=== PATIENT | male | born 1985 | race African-American/Black ===

== ENCOUNTER 2019-06-07 02:39 | Emergency (ER) | payer SELFPAY ==
[~2019-06-07] VITALS: Ht 170.2 cm; Wt 68.0 kg
[2019-06-07] MEDS ORDERED: NKM (02:43)
[2019-06-07 02:45] VITALS: BP 127/76
--- NOTE | 2019-06-07 02:45 | NUR ---
ER Nurse Note: Pt brought in by [facility] for medical clearance. Per [facility], pt got tazed and had the tazer karen stuck on the RT flank and RT thigh. Pt ambulatory, with [facility] at pt side. [facility] documented on all forms. Will continue to monitor.
--- NOTE | 2019-06-07 03:06 | Emergency Room Report ---
History of Present Illness General Chief Complaint: Medical Clearance Source: Patient Present Illness HPI This is a 34-year-old transgender female who presents with chief complaint of foreign body to her flank. She was brought in for medical clearance by police. She was tased. There is a taser tip in the right flank back area. Minimal pain. No nausea no vomiting. No fever chills. Allergies: Coded Allergies: No Known Allergies (Unverified , 06/07/19) Patient History Past Medical History: see triage record, old chart reviewed Past Surgical History: other Pertinent Family History: none Social History: Reports: smoking Immunizations: other Reviewed Nursing Documentation: PMH: Agreed; PSxH: Agreed Nursing Documentation-PMH Past Medical History: No Stated History Review of Systems Eye: Denies: eye pain, blurred vision ENT: Denies: ear pain, nose congestion, throat swelling Respiratory: Denies: cough, shortness of breath Cardiovascular: Denies: chest pain, palpitations Gastrointestinal: Denies: abdominal pain, diarrhea, nausea, vomiting Musculoskeletal: Denies: back pain, joint pain Skin: Denies: rash Neurological: Denies: headache, numbness Endocrine: Denies: increased thirst, increased urine Hematologic/Lymphatic: Denies: easy bruising All Other Systems: negative except mentioned in HPI Physical Exam Vital Signs Date Time Temp Pulse Resp B/P (MAP) Pulse Ox O2 Delivery O2 Flow Rate FiO2 06/07/19 02:40 98.1 112 18 127/76 (93) 98 Room Air Vitals with tachycardia Sp02 EP Interpretation: reviewed, normal General Appearance: well appearing, no apparent distress, alert Head: normocephalic, atraumatic Eyes: bilateral eye PERRL, bilateral eye EOMI ENT: hearing grossly normal, normal pharynx Neck: full range of motion, supple, no meningismus Respiratory: chest non-tender, lungs clear, normal breath sounds Cardiovascular #1: regular rate, rhythm, no murmur Gastrointestinal: normal bowel sounds, non tender, no mass, no organomegaly, no bruit, non-distended Musculoskeletal: back normal, gait/station normal, normal range of motion, other - Taser tip in right flank Psychiatric: mood/affect normal Medical Decision Making Diagnostic Impression: Primary Impression: Foreign body (FB) in soft tissue ER Course Patient with a taser wire in his right flank soft tissue area. I removed it without any difficulty. Will discharge to police. Last Vital Signs Date Time Temp Pulse Resp B/P (MAP) Pulse Ox O2 Delivery O2 Flow Rate FiO2 06/07/19 02:45 112 18 Room Air 06/07/19 02:45 98.1 127/76 98 Status: improved Disposition: D/C TO LAW ENFORCEMENT IN [facility] Condition: Stable Additional Instructions: Follow-up with your doctor in 7 days. Keep wound clean. Return if worse. Sekou Pruitt MD Jun 07, 2019 03:06
--- NOTE | 2019-06-07 03:07 | NUR ---
ER Nurse Note: Ludiner wire extracted, provided specimen cup to ALIYA for the wire. Pt cooperating. Will continue to monitor. Pt seen, treated, medically cleared for booking by [facility]. Discharge instuctions given with repeat verbalization by ALIYA. Emphasized to follow up with primary care provider. All orders completed per ERMD orders. Pt a&ox4, VSS, no signs of distress. ID band removed. Pt left with all belongings, left with [facility].
[2019-06-07 03:11] VITALS: BP 127/76
== END 2019-06-07 03:11 ==
LOC: EMR 02:57
DX: M79.5 Residual foreign body in soft tissue (principal); F17.200 Nicotine dependence, unspecified, uncomplicated
CPT/HCPCS: 99282